=== PATIENT | female | born 1945 | race Caucasian/White ===

== ENCOUNTER 2025-04-16 23:49 | Inpatient (IN) | payer MEDICARE, BC ==
[~2025-04-16] VITALS: Ht 165.1 cm; Wt 62.5 kg
[2025-04-17] MEDS ORDERED: LOSA25 PO (00:10)
[2025-04-17 00:20] LABS: BASOPHILS ABSOLUTE AUTO 0.04 K/mm3 (0.00-0.23); BASOPHILS PERCENT AUTO 1 % (0-2); EOSINOPHILS ABSOLUTE AUTO 0.17 K/mm3 (0.00-0.68); EOSINOPHILS PERCENT AUTO 2 % (0-6); Hematocrit 38.2 % (33.0-51.0); Hemoglobin 12.9 g/dL (11.5-16.0); IMMATURE GRAN ABSOLUTE AUTO 0.01 K/mm3 (0.00-0.10); IMMATURE GRAN PERCENT AUTO 0 % (0-1); LYMPHOCYTES ABSOLUTE AUTO 2.04 K/mm3 (0.84-5.20); LYMPHOCYTES PERCENT AUTO 26 % (21-46); MONOCYTES ABSOLUTE AUTO 0.54 K/mm3 (0.16-1.47); MONOCYTES PERCENT AUTO 7 % (4-13); Mean Corpuscular HGB Conc 33.8 g/dL (31.5-36.5); Mean Corpuscular Volume 88 fL (80-100); NEUTROPHILS ABSOLUTE AUTO 5.03 K/mm3 (1.96-9.15); NEUTROPHILS PERCENT AUTO 64 % (41-73); NRBC ABSOLUTE 0.00 K/mm3 (0.00-0.02); NRBC Auto 0.0 /100 WBC (0.0-0.2); Platelet Count 222 K/mm3 (150-400); RDW Coefficient Variation 13.4 % (11.7-14.2); RDW Standard Deviation 43.8 fL (35.1-46.3)
[2025-04-17 00:33] LABS: Alanine Aminotransfer (ALT/SGP 37.0 U/L (12-78); Albumin, Blood 3.6 g/dL (3.4-5.0); Albumin/Globulin Ratio 1.1 (0.8-1.8); Anion Gap 7.0 mmol/L (3-11); Aspartate Aminotrans (AST/SGOT 37.0 U/L (12-37); Bilirubin, Total 0.3 mg/dL (0.1-1.0); Blood Urea Nitrogen 23.0 mg/dL (8-24); CO2, Blood 28.0 mmol/L (21-32); Calcium, Blood 9.5 mg/dL (8.5-10.1); Chloride, Blood 111.0 mmol/L (98-108); Creatinine, Blood 0.77 mg/dL (0.40-1.00); Globulin, Blood 3.2 g/dL (2.2-4.0); Glucose, Blood 99.0 mg/dL (70-99); Potassium, Blood 4.0 mmol/L (3.5-5.5); Sodium, Blood 142.0 mmol/L (136-145); Total Protein, Blood 6.8 g/dL (6.4-8.2)
[2025-04-17 01:28] LABS: Magnesium, Blood 2.1 mg/dL (1.6-2.4)
[2025-04-17] MEDS ORDERED: FentaNYL Citrate 50 MCG/ML 2 ML Injection IV ONE (03:25)
[2025-04-17] MEDS ORDERED: Morphine Sulfate 4 MG/1 ML Injection IV ONE (05:20)
[2025-04-17] MEDS ORDERED: FLU VACC TS2025(65UP)/MF59C/PF 45 MCG/0.5 ML SYRINGE IM SCH (06:45)
[2025-04-17] MEDS ORDERED: Naloxone HCl 0.4MG / ML 1ML Vial IV PRN (06:50)
[2025-04-17] MEDS ORDERED: Ondansetron HCl 2 MG / ML 2ML Vial IV PRN (06:50)
[2025-04-17] MEDS ORDERED: Morphine Sulfate 4 MG/1 ML Injection IV PRN (06:50)
[2025-04-17 07:07] LABS: CHOL/HDL RATIO 2.5; Cholesterol 181 mg/dL (50-200); HDL Cholesterol 73 mg/dL (>39); LDL/HDL RATIO 1.3; Low Density Lipoprotein Chol 98 mg/dL (0-110); Triglycerides 49 mg/dL (30-160); Very Low Density Lipoprot Chol 9 mg/dL (6-32)
[2025-04-17] MEDS ORDERED: Ketorolac Tromethamine 15mg Vial IV PRN (07:10)
[2025-04-17] MEDS ORDERED: Enoxaparin 40 MG/0.4 ML SYR SC SCH (09:00)
[2025-04-17 10:11] VITALS: BP 154/83
--- NOTE | 2025-04-17 11:11 | NUR ---
BILL FELIX PATIENT WAS FINISHING STRESS TEST IN PCU3 JUST STATED SHE WAS NOT FEELING WELL AND WAS NAUSEOUS AND THEN WENT ASYSTOLE ON THE TELE AND WAS NON RESPONSIVE CHEST COMPRESSIONS WERE STARTED RIGHT AWAY AND BILL FELIX WAS CALLED AND PATIENT REGAINED CONSCIOUSNESS AND RHYTHM IN LESS THAN 30 SECONDS. HOSPITALIST CALLED TO BEDSIDE.
[2025-04-17 11:14] VITALS: BP 118/80
[2025-04-17 11:16] VITALS: BP 138/120
--- NOTE | 2025-04-17 13:00 | NUR ---
ARRIVED TO PATIENTS ROOM DUE TO CODE BLUE. PATIENT WAS RECIEVING CPR UPON MY ARRIVAL. CALLED PATIENTS DAUGHTER AND UPDATED HER PER PATIENTS REQUEST.
--- NOTE | 2025-04-17 16:12 | NUR ---
URINE URINE IS FOUL SMELLING AND CLOUDY AND PATIENT STATES SHE HAS NO URGE TO VOID UNTIL SHE ALMOST HAS INCONTINENCE AND DID HAVE ONE EPISODE OF INCONTINENCE.
[2025-04-17 16:44] VITALS: BP 129/69
--- NOTE | 2025-04-17 19:13 | NUR ---
shift summary PATIENT AOX4 DENIES SOB DOES HAVE CHEST PAIN THAT HAS IMPROVED FROM SINCE HER EPISODE OF ASYSTOLE EARLIER TODAY. VITALS ARE STABLE AND SHE IS TOLERATING HER MEALS SHE IS A SBA TO THE RESTROOM. SHE IS AWARE AND AGREES WITH HER PLAN OF CARE.
[2025-04-17 20:29] VITALS: BP 130/59
[2025-04-17 23:20] VITALS: BP 127/61
[2025-04-18] VITALS (34 sets, daily range): BP systolic 94–141; BP diastolic 50–118
[2025-04-18 04:12] LABS: BASOPHILS ABSOLUTE AUTO 0.04 K/mm3 (0.00-0.23); BASOPHILS PERCENT AUTO 1 % (0-2); EOSINOPHILS ABSOLUTE AUTO 0.07 K/mm3 (0.00-0.68); EOSINOPHILS PERCENT AUTO 1 % (0-6); Hematocrit 33.0 % (33.0-51.0); Hemoglobin 10.9 g/dL (11.5-16.0); IMMATURE GRAN ABSOLUTE AUTO 0.01 K/mm3 (0.00-0.10); IMMATURE GRAN PERCENT AUTO 0 % (0-1); LYMPHOCYTES ABSOLUTE AUTO 1.09 K/mm3 (0.84-5.20); LYMPHOCYTES PERCENT AUTO 15 % (21-46); MONOCYTES ABSOLUTE AUTO 0.69 K/mm3 (0.16-1.47); MONOCYTES PERCENT AUTO 10 % (4-13); Mean Corpuscular HGB Conc 33.0 g/dL (31.5-36.5); Mean Corpuscular Volume 89 fL (80-100); NEUTROPHILS ABSOLUTE AUTO 5.17 K/mm3 (1.96-9.15); NEUTROPHILS PERCENT AUTO 73 % (41-73); NRBC ABSOLUTE 0.00 K/mm3 (0.00-0.02); NRBC Auto 0.0 /100 WBC (0.0-0.2); Platelet Count 183 K/mm3 (150-400); RDW Coefficient Variation 13.9 % (11.7-14.2); RDW Standard Deviation 45.3 fL (35.1-46.3)
[2025-04-18 04:31] LABS: Alanine Aminotransfer (ALT/SGP 100.0 U/L (12-78); Albumin, Blood 3.0 g/dL (3.4-5.0); Albumin/Globulin Ratio 1.0 (0.8-1.8); Anion Gap 8.0 mmol/L (3-11); Aspartate Aminotrans (AST/SGOT 87.0 U/L (12-37); Bilirubin, Total 1.1 mg/dL (0.1-1.0); Blood Urea Nitrogen 15.0 mg/dL (8-24); CO2, Blood 24.0 mmol/L (21-32); Calcium, Blood 8.6 mg/dL (8.5-10.1); Chloride, Blood 110.0 mmol/L (98-108); Creatinine, Blood 0.74 mg/dL (0.40-1.00); Globulin, Blood 2.9 g/dL (2.2-4.0); Glucose, Blood 92.0 mg/dL (70-99); Magnesium, Blood 2.1 mg/dL (1.6-2.4); Potassium, Blood 3.9 mmol/L (3.5-5.5); Sodium, Blood 138.0 mmol/L (136-145); Total Protein, Blood 5.9 g/dL (6.4-8.2)
--- NOTE | 2025-04-18 06:13 | NUR ---
SHIFT SUMMARY PT A&O X4, ABLE TO MAKE NEEDS KNOWN, MOVING ALL EXTREMITIES WITH PURPOSE, ABLE TO REPOSITION SELF IN BED, SBA TO BATHROOM, PT CALLS APPROPRIATELY. CONTINUOUS SPO2, SPO2 GREATER THAN 90% RA, LUNGS CLEAR T/O AND DIMINISHED IN THE BASES/ PT EDUCATED ON IMPORTANCE OF DEEP BREATHING A COUGH,, NO SIGNS OF RESPIRATORY DISTRESS NOTED THIS SHIFT. CONTINUOUS TELE MONITORING, SINUS S 70-90 S, BP STABLE WITH MAP GREATER THAN 65, CAP REFILL WNL, PULSES PRESENT T/O, PT REPORTING CHEST PAIN WITH MOVEMENT AND DEEP BREATHING/ DENIES NEED FOR MEDICATIONS OR HEAT/ICE. BOWEL TONES PRESENT IN ALL 4Q, PT DENIES NAUSEA/ PAIN/ FEELINGS OF CONSTIPATION. VOIDING IND, URINE YELLOW IN COLOR. BED LOWEST POSITION, CALL LIGHT IN REACH, AWAITING TO GIVE REPORT TO ONCOMING RN.
--- NOTE | 2025-04-18 06:48 | NUR ---
PATIENT EVENT @ APPROX 0617 PT CONVERED TO AFIB, PT REPROTING THIS IS THE BEST SHE HAS FELT IN TWO DAYS, BP STABLE WITH MAP GREATER THAN 65, HR 100-120'S AT REST AND 140-160'S WITH ACTIVITY, PT DENIES CHEST P/P AT THIS TIME, NEW EKG IN CHART, NOTIFIED
--- NOTE | 2025-04-18 07:00 | NUR ---
REPORT RECEIVED FROM BACK FILLER OPERATOR NURSE. PT IS A&Ox4 AND ABLE TO MAKE NEEDS KNOWN. SHE IS ON RA W/O2 SATS > 92%. SHE IS A SBA FOR AMBULATION D/T LINES AND WIRES. NO NEEDS OR CONCERNS NOTED @ THIS TIME. BED IN LOW POSITION, CALL LIGHT AND PERSONAL BELONGINGS IN REACH.
[2025-04-18] MEDS ORDERED: Metoprolol Tartrate 1 MG/ML 5 ML VIAL IV ONE (07:05)
[2025-04-18] MEDS ORDERED: Amiodarone HCl 450 MG in NS 250 ML IV SCH (08:20)
[2025-04-18] MEDS ORDERED: Amiodarone HCl 150 MG in NS 100 ML IV ONE (08:20)
--- NOTE | 2025-04-18 10:35 | NUR ---
PT CONVERTED TO SR @ APPROXIMATELY 1025. AMIO GTT RUNNING PER EMAR. PT LAYING IN BED W/EYES CLOSED. BED IN LOW POSITION, CALL LIGHT AND PERSONAL BELONGINGS IN REACH.
--- NOTE | 2025-04-18 18:12 | NUR ---
NO ACUTE EVENTS THIS SHIFT. PT IS ON AMIO PER EMAR. NO NEEDS OR CONCERNS NOTED @ THIS TIME. BED IN LOW POSITION, CALL LIGHT AND PERSONAL BELONGINGS IN REACH.
[2025-04-19 03:50] LABS: BASOPHILS ABSOLUTE AUTO 0.04 K/mm3 (0.00-0.23); BASOPHILS PERCENT AUTO 1 % (0-2); EOSINOPHILS ABSOLUTE AUTO 0.14 K/mm3 (0.00-0.68); EOSINOPHILS PERCENT AUTO 2 % (0-6); Hematocrit 32.2 % (33.0-51.0); Hemoglobin 10.9 g/dL (11.5-16.0); IMMATURE GRAN ABSOLUTE AUTO 0.03 K/mm3 (0.00-0.10); IMMATURE GRAN PERCENT AUTO 1 % (0-1); LYMPHOCYTES ABSOLUTE AUTO 1.12 K/mm3 (0.84-5.20); LYMPHOCYTES PERCENT AUTO 19 % (21-46); MONOCYTES ABSOLUTE AUTO 0.54 K/mm3 (0.16-1.47); MONOCYTES PERCENT AUTO 9 % (4-13); Mean Corpuscular HGB Conc 33.9 g/dL (31.5-36.5); Mean Corpuscular Volume 88 fL (80-100); NEUTROPHILS ABSOLUTE AUTO 4.16 K/mm3 (1.96-9.15); NEUTROPHILS PERCENT AUTO 69 % (41-73); NRBC ABSOLUTE 0.00 K/mm3 (0.00-0.02); NRBC Auto 0.0 /100 WBC (0.0-0.2); Platelet Count 177 K/mm3 (150-400); RDW Coefficient Variation 13.8 % (11.7-14.2); RDW Standard Deviation 44.7 fL (35.1-46.3)
[2025-04-19 04:01] VITALS: BP 129/66
[2025-04-19 04:22] LABS: Alanine Aminotransfer (ALT/SGP 185.0 U/L (12-78); Albumin, Blood 2.9 g/dL (3.4-5.0); Albumin/Globulin Ratio 0.9 (0.8-1.8); Anion Gap 8.0 mmol/L (3-11); Aspartate Aminotrans (AST/SGOT 134.0 U/L (12-37); Bilirubin, Total 0.7 mg/dL (0.1-1.0); Blood Urea Nitrogen 18.0 mg/dL (8-24); CO2, Blood 24.0 mmol/L (21-32); Calcium, Blood 8.5 mg/dL (8.5-10.1); Chloride, Blood 112.0 mmol/L (98-108); Creatinine, Blood 0.79 mg/dL (0.40-1.00); Globulin, Blood 3.1 g/dL (2.2-4.0); Glucose, Blood 90.0 mg/dL (70-99); Potassium, Blood 3.8 mmol/L (3.5-5.5); Sodium, Blood 140.0 mmol/L (136-145); Total Protein, Blood 6.0 g/dL (6.4-8.2)
--- NOTE | 2025-04-19 05:59 | NUR ---
SHIFT SUMMARY PT A&O X4, ABLE TO MAKE NEEDS KNOWN, MOVING ALL EXTREMITIES WITH PURPOSE, ABLE TO REPOSITION SELF IN BED, SBA TO BATHROOM, PT CALLS APPROPRIATELY. CONTINUOUS SPO2, SPO2 GREATER THAN 92% RA, LUNGS CLEAR T/O, NO SIGNS OF RESPIRATORY DISTRESS NOTED THIS SHIFT. CONTINUOUS TELE MONITORING, SINUS S 60-90 S, BP STABLE WITH MAP GREATER THAN 65, CAP REFILL WNL, PULSES PRESENT T/O, PT REPORTING CHEST PAIN WITH MOVEMENT AND DEEP BREATHING/ DENIES NEED FOR MEDICATIONS OR HEAT/ICE, AMIODERONE DRIP INFUSING PER ORDERS. BOWEL TONES PRESENT IN ALL 4Q, PT DENIES NAUSEA/ PAIN/ FEELINGS OF CONSTIPATION. VOIDING IND, URINE YELLOW IN COLOR. AMIODERODE INFILTRATED IN LEFT FOREARM/ PHARMACY CALLED AND MD NOTIFIED/ COLD COMPRESSED PLACED PER PHARMACY RECOMMENDATION AND MD. BED LOWEST POSITION, CALL LIGHT IN REACH, AWAITING TO GIVE REPORT TO ONCOMING RN.
[2025-04-19] MEDS ORDERED: TIRZEPATIDE SC (07:56)
[2025-04-19 09:26] VITALS: BP 140/61
[2025-04-19 11:35] VITALS: BP 145/93
[2025-04-19] MEDS ORDERED: METO25ER PO (12:40)
[2025-04-19] MEDS ORDERED: ELIQUIS5 M2 PO (12:40)
--- NOTE | 2025-04-19 14:04 | NUR ---
DISCHARGE SUMMARY PT A&Ox4, CALLS AND COMMUNICATES NEEDS APPROPRIATELY. BP STABLE, SINUS 60's, DENIES CP/PRESSYRE. REPORTS MILD RIB PAIN FROM CPR BUT DENIES NEED FOR PAIN MEDICATION. SpO2> 92% RA, DENIES SOB. IND IN ROOM. AMIO gtt OFF AT 0930. FAMILY AT BEDSIDE. MEDICATIONS CALLED INTO [facility] IN [place], [place]. DISCHARGE INSTRUCTIONS PROVIDED BY LUKE QUARLES.
== END 2025-04-19 13:09 | disposition home or self-care (01) | DRG 313 ==
LOC: ER 23:49 → ERHOLD 23:50 → PCU 04-17 10:10
PROVIDERS: Emergency Medicine; ADMIT Student in an Organized Health Care Education/Training Program
PROC: 5A12012 Performance of Cardiac Output, Single, Manual (ICD-10-PCS; principal; 2025-04-17)
DX: R07.89 Other chest pain (principal); I46.8 Cardiac arrest due to other underlying condition; I44.0 Atrioventricular block, first degree; I10 Essential (primary) hypertension; T46.3X5A Adverse effect of coronary vasodilators, initial encounter; I48.0 Paroxysmal atrial fibrillation; R74.01 Elevation of levels of liver transaminase levels; I49.1 Atrial premature depolarization; Z87.891 Personal history of nicotine dependence; Z85.3 Personal history of malignant neoplasm of breast; Z85.828 Personal history of other malignant neoplasm of skin; Z79.82 Long term (current) use of aspirin; Z79.899 Other long term (current) drug therapy; Z88.5 Allergy status to narcotic agent; Z88.8 Allergy status to other drugs, medicaments and biological substances
CPT/HCPCS: 36415; 71046; 71260; 78452; 80053; 80061; 83036; 83690; 83735; 83880; 84443; 84484; 85025; 85379; 93005; 93010; 93017; 93246; 93306; 94762; 96374-59; 96375-59; 99285; A9270; A9500; G0378; J0282; J0706; J1650; J1885; J2270; J2405; J2785; J3010; J7050; Q9967